=== PATIENT | female | born 2005 | race African-American/Black ===

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

== ENCOUNTER 2024-01-09 16:31 | Emergency (ER) | payer OTHER | END 2024-01-09 16:55 | disposition left against medical advice (07) | LOC: ER 16:33 | DX: R10.9 Unspecified abdominal pain (principal); Z53.21 Procedure and treatment not carried out due to patient leaving prior to being seen by health care provider ==

== ENCOUNTER 2024-03-04 19:53 | Emergency (ER) | payer OTHER ==
[~2024-03-04] VITALS: Ht 167.6 cm; Wt 90.7 kg
[2024-03-04] MEDS ORDERED: methylPREDNISolone SOD SUCC 125 MG/2 ML VIAL ONE (20:09)
[2024-03-04] MEDS ORDERED: diphenhydrAMINE 50 MG/1 ML VIAL ONE (20:09)
[2024-03-04] MEDS ORDERED: FAMOTIDINE. 20 MG/2 ML VIAL IV ONE (20:10)
[2024-03-04] MEDS: FAMOTIDINE. 20 MG/2 ML VIAL IV ONE (20:21)
[2024-03-04] MEDS: methylPREDNISolone SOD SUCC 125 MG/2 ML VIAL IV ONE (20:21)
[2024-03-04] MEDS: diphenhydrAMINE 50 MG/1 ML VIAL IV ONE (20:21)
[2024-03-04 20:35] LABS: BASOPHILS # (AUTO) 0.1 K/UL (0.0-0.2); BASOPHILS % (AUTO) 0.9 % (0.0-2.0); EOSINOPHILS # (AUTO) 0.3 K/uL (0.0-0.7); HEMATOCRIT 35.7 % (31.2-41.9); HEMOGLOBIN 11.4 g/dL (10.9-14.3); LYMPHOCYTES # (AUTO) 3.2 K/uL (0.8-4.8); LYMPHOCYTES % (AUTO) 38.2 % (20.5-74.5); MEAN CORPUSCULAR HEMOGLOBIN 25.6 uug (24.7-32.8); MEAN CORPUSCULAR HGB CONC 32 g/dL (32.3-35.6); MEAN CORPUSCULAR VOLUME 79.8 fL (75.5-95.3); MONOCYTES # (AUTO) 0.6 K/uL (0.1-1.30); MONOCYTES % (AUTO) 7.5 % (0-11); NEUTROPHILS # (AUTO) 4.1 K/uL (1.8-8.9); NEUTROPHILS % (AUTO) 49.4 % (31.5-64.5); PLATELET COUNT (AUTO) 231 K/uL (179-408); RED BLOOD CELL COUNT(AUTO) 4.47 MIL/uL (3.63-4.92); RED CELL DISTRIBUTION WIDTH 17.3 % (12.3-17.7); WHITE BLOOD COUNT (AUTO) 8.4 K/uL (3.8-11.8)
[2024-03-04 20:40] LABS: DIFFERENTIAL COMMENT 1
[2024-03-04 20:59] LABS: CALCIUM 8.6 mg/dL (8.5-10.1); CARBON DIOXIDE 28 mmol/L (21-32); CHLORIDE 105 mmol/L (98-107); CREATININE 0.8 mg/dL (0.6-1.3); GLUCOSE 93 mg/dL (74-106); SODIUM SERUM 143 mmol/L (136-145); UREA NITROGEN, BLOOD 3 mg/dL (7-18)
[2024-03-04 21:14] LABS: ALANINE AMINOTRANSFERASE 8 U/L (14-59); ALBUMIN 3.2 g/dL (3.4-5.0); ALKALINE PHOSPHATASE 86 U/L (50-136); ASPARTATE AMINOTRANSFERASE < 5 U/L (15-37); BILIRUBIN,TOTAL 0.3 mg/dL (0.2-1.0); TOTAL PROTEIN, SERUM 7.8 g/dL (6.4-8.2)
[2024-03-04] MEDS ORDERED: FAMO-132 PO (21:29)
[2024-03-04] MEDS ORDERED: EPIN0.3P3 IM (21:29)
[2024-03-04] MEDS ORDERED: DIPH25TA62 PO (21:29)
[2024-03-04] MEDS ORDERED: POTASSIUM CHLORIDE 20 MEQ TAB.PRT.SR ONE (21:33)
[2024-03-04] MEDS: POTASSIUM CHLORIDE 20 MEQ TAB.PRT.SR PO ONE (21:38)
[2024-03-04] MEDS ORDERED: PRED20TA PO (21:54)
[2024-03-04 22:44] VITALS: BP 117/93; O2SAT 97
== END 2024-03-04 22:17 | disposition home or self-care (01) ==
LOC: ER 19:58
DX: T78.3XXA Angioneurotic edema, initial encounter (principal); Z79.899 Other long term (current) drug therapy; Z88.8 Allergy status to other drugs, medicaments and biological substances; Y92.89 Other specified places as the place of occurrence of the external cause
CPT/HCPCS: 99284; 96374; 96375; 80053; 85025; 36415; 83605; J1200; J3490; J2919; A4606; A4663

== ENCOUNTER 2024-04-09 15:53 | Emergency (ER) | payer OTHER ==
[~2024-04-09] VITALS: Ht 170.2 cm; Wt 68.0 kg
[~2024-04-09 15:53] MED LIST changes: +DIPH25TA62 PO; +PRED20TA PO
[2024-04-09 16:31] LABS: *BILIRUBIN,URIN 1+ (NEGATIVE); *BLOOD, URINE NEGATIVE (NEGATIVE); *CLARITY,URINE CLEAR (CLEAR); *COLOR,URINE YELLOW (YELLOW); *KETONES,URINE 3+ (NEGATIVE); *PROTEIN,URINE TRACE (NEGATIVE); *UROBILINOGEN,URINE 0.2 E.U./dl (NORMAL); LEUKOCYTE ESTERASE ,URINE 1+ (NEGATIVE); NITRITE, URINE NEGATIVE (NEGATIVE); PH,URINE 5.5 (5.0-8.0); UGLUCOSE NEGATIVE (NEGATIVE)
[2024-04-09 16:32] LABS: *URINE HCG, QUAL NEGATIVE (NEGATIVE); CALCIUM 9.4 mg/dL (8.5-10.1); CARBON DIOXIDE 25 mmol/L (21-32); CHLORIDE 103 mmol/L (98-107); CREATININE 0.7 mg/dL (0.6-1.3); GLUCOSE 84 mg/dL (74-106); POTASSIUM 3.3 mmol/L (3.5-5.1); SODIUM SERUM 140 mmol/L (136-145); UREA NITROGEN, BLOOD 5 mg/dL (7-18)
[2024-04-09 16:37] LABS: ALANINE AMINOTRANSFERASE 10 U/L (14-59); ALBUMIN 3.4 g/dL (3.4-5.0); ALKALINE PHOSPHATASE 82 U/L (50-136); ASPARTATE AMINOTRANSFERASE < 5 U/L (15-37); BILIRUBIN,DIRECT 0.1 mg/dL (0.0-0.2); BILIRUBIN,TOTAL 0.5 mg/dL (0.2-1.0); LIPASE 20 U/L (16-77)
[2024-04-09 17:23] LABS: BACTERIA,URINE FEW /HPF (NONE SEEN); MUCUS,URINE FEW /LPF (0-FEW); SQUAMOUS EPITHELIAL CELL,UR MODERATE /HPF (NONE SEEN)
[2024-04-09] MEDS ORDERED: PHEN-704 PO (18:11)
[2024-04-09] MEDS ORDERED: NITR100C6 PO (18:11)
[2024-04-09 18:16] VITALS: BP 121/71; O2SAT 98
== END 2024-04-09 18:16 | disposition home or self-care (01) ==
LOC: ER 15:55
DX: N39.0 Urinary tract infection, site not specified (principal); R10.2 Pelvic and perineal pain; Z88.8 Allergy status to other drugs, medicaments and biological substances; Z91.018 Allergy to other foods; Z79.2 Long term (current) use of antibiotics; Z79.899 Other long term (current) drug therapy
CPT/HCPCS: 36415; 76856; 83690; 84703; A4606; A4663

== ENCOUNTER 2025-03-10 12:37 | Emergency (ER) | payer OTHER ==
[~2025-03-10] VITALS: Ht 167.6 cm; Wt 74.8 kg
[~2025-03-10 12:37] MED LIST changes: +NITR100C6 PO; +PHEN-704 PO
[2025-03-10 13:01] LABS: *BILIRUBIN,URIN NEGATIVE (NEGATIVE); *BLOOD, URINE NEGATIVE (NEGATIVE); *CLARITY,URINE CLEAR (CLEAR); *COLOR,URINE YELLOW (YELLOW); *KETONES,URINE NEGATIVE (NEGATIVE); *PROTEIN,URINE NEGATIVE (NEGATIVE); *UROBILINOGEN,URINE 0.2 E.U./dl (NORMAL); LEUKOCYTE ESTERASE ,URINE NEGATIVE (NEGATIVE); NITRITE, URINE NEGATIVE (NEGATIVE); UGLUCOSE NEGATIVE (NEGATIVE)
[2025-03-10 13:04] LABS: *URINE HCG, QUAL POSITIVE (NEGATIVE)
[2025-03-10 13:52] LABS: BASOPHILS % (AUTO) 0.6 % (0.0-2.0); EOSINOPHILS # (AUTO) 0.1 K/uL (0.0-0.7); EOSINOPHILS % (AUTO) 1.3 % (0.0-7.0); HEMOGLOBIN 12.4 g/dL (10.9-14.3); LYMPHOCYTES # (AUTO) 1.6 K/uL (0.8-4.8); LYMPHOCYTES % (AUTO) 29.8 % (20.5-51.5); MEAN CORPUSCULAR HEMOGLOBIN 27.3 uug (24.7-32.8); MEAN CORPUSCULAR HGB CONC 33 g/dL (32.3-35.6); MEAN CORPUSCULAR VOLUME 83.9 fL (75.5-95.3); MONOCYTES # (AUTO) 0.3 K/uL (0.1-1.30); MONOCYTES % (AUTO) 5.7 % (0.0-11.0); NEUTROPHILS # (AUTO) 3.3 K/uL (1.8-8.9); NEUTROPHILS % (AUTO) 62.6 % (38.5-71.5); PLATELET COUNT (AUTO) 181 K/uL (179-408); RED BLOOD CELL COUNT(AUTO) 4.53 MIL/uL (3.63-4.92); RED CELL DISTRIBUTION WIDTH 15.1 % (12.3-17.7); WHITE BLOOD COUNT (AUTO) 5.3 K/uL (3.8-11.8)
[2025-03-10 13:58] LABS: DIFFERENTIAL COMMENT 1
[2025-03-10 14:02] LABS: CALCIUM 8.6 mg/dL (8.5-10.1); CARBON DIOXIDE 26 mmol/L (21-32); CHLORIDE 102 mmol/L (98-107); CREATININE 0.5 mg/dL (0.6-1.3); GLUCOSE 83 mg/dL (74-106); POTASSIUM 3.5 mmol/L (3.5-5.1); SODIUM SERUM 138 mmol/L (136-145); UREA NITROGEN, BLOOD 3 mg/dL (7-18)
[2025-03-10 14:08] LABS: ALANINE AMINOTRANSFERASE 15 U/L (14-59); ALBUMIN 3.3 g/dL (3.4-5.0); ALKALINE PHOSPHATASE 57 U/L (50-136); ASPARTATE AMINOTRANSFERASE 9 U/L (15-37); BILIRUBIN,DIRECT < 0.1 mg/dL (0.0-0.2); BILIRUBIN,TOTAL 0.2 mg/dL (0.2-1.0); TOTAL PROTEIN, SERUM 7.5 g/dL (6.4-8.2)
[2025-03-10 14:32] LABS: PREGNANCY TEST SERUM QUAN 15923 miul/L (0-6)
[2025-03-10 15:11] VITALS: BP 110/60; TEMP 97.5; O2SAT 99
== END 2025-03-10 15:00 | disposition home or self-care (01) ==
LOC: ER 12:42
DX: O26.891 Other specified pregnancy related conditions, first trimester (principal); O99.321 Drug use complicating pregnancy, first trimester; R10.2 Pelvic and perineal pain; R11.0 Nausea; E46 Unspecified protein-calorie malnutrition; M54.9 Dorsalgia, unspecified; R10.30 Lower abdominal pain, unspecified; Z79.52 Long term (current) use of systemic steroids; Z88.6 Allergy status to analgesic agent; Z88.7 Allergy status to serum and vaccine; Z3A.01 Less than 8 weeks gestation of pregnancy
CPT/HCPCS: 36415; 76856; 84703; 85025; A4606; A4663

== ENCOUNTER 2025-07-01 15:42 | Emergency (ER) | payer OTHER ==
[~2025-07-01] VITALS: Ht 167.6 cm; Wt 81.6 kg
[2025-07-01 15:52] VITALS: BP 120/72
[2025-07-01 16:39] LABS: PLATELET COUNT (AUTO) 182 K/uL (179-408); RED BLOOD CELL COUNT(AUTO) 4.42 MIL/uL (3.63-4.92); RED CELL DISTRIBUTION WIDTH 13.7 % (12.3-17.7); WHITE BLOOD COUNT (AUTO) 5.2 K/uL (3.8-11.8)
[2025-07-01 16:54] LABS: CREATININE 0.6 mg/dL (0.6-1.3); SODIUM SERUM 137 mmol/L (136-145); UREA NITROGEN, BLOOD 4 mg/dL (7-18)
[2025-07-01 17:00] LABS: ASPARTATE AMINOTRANSFERASE 9 U/L (15-37); TOTAL PROTEIN, SERUM 8.2 g/dL (6.4-8.2)
[2025-07-01 17:24] LABS: PREGNANCY TEST SERUM QUAN 17368 miul/L (0-6)
[2025-07-01] MEDS ORDERED: POTASSIUM BICARBONATE/CIT AC 25 MEQ TABLET.EFF ONE (17:28)
[2025-07-01] MEDS ORDERED: ONDANSETRON ODT 4 MG TAB.RAPDIS ONE (17:28)
[2025-07-01] MEDS: ONDANSETRON ODT 4 MG TAB.RAPDIS SL ONE (17:34)
[2025-07-01] MEDS: POTASSIUM BICARBONATE/CIT AC 25 MEQ TABLET.EFF PO ONE (17:34)
[2025-07-01 17:41] LABS: *BILIRUBIN,URIN NEGATIVE (NEGATIVE); *CLARITY,URINE CLEAR (CLEAR); *COLOR,URINE LIGHT YELLOW (YELLOW); *KETONES,URINE 2+ (NEGATIVE); *PROTEIN,URINE NEGATIVE (NEGATIVE); *UROBILINOGEN,URINE 0.2 E.U./dl (NORMAL); LEUKOCYTE ESTERASE ,URINE NEGATIVE (NEGATIVE); NITRITE, URINE NEGATIVE (NEGATIVE); UGLUCOSE NEGATIVE (NEGATIVE)
[2025-07-01 17:46] LABS: *BLOOD, URINE TRACE (NEGATIVE)
[2025-07-01] MEDS ORDERED: POTA25TA7 PO (18:02)
[2025-07-01 18:05] LABS: SQUAMOUS EPITHELIAL CELL,UR FEW /HPF (NONE SEEN)
[2025-07-01 18:32] VITALS: BP 120/72; O2SAT 99
== END 2025-07-01 18:33 | disposition home or self-care (01) ==
LOC: ER 15:42
DX: O20.0 Threatened abortion (principal); O99.891 Other specified diseases and conditions complicating pregnancy; O99.321 Drug use complicating pregnancy, first trimester; E87.6 Hypokalemia; Z79.52 Long term (current) use of systemic steroids; Z88.6 Allergy status to analgesic agent; Z88.7 Allergy status to serum and vaccine; Z91.018 Allergy to other foods; Z3A.08 8 weeks gestation of pregnancy
CPT/HCPCS: 36415; 76856; 85025; 86850; 86900; 86901; A4606; A4663; Q0162

== ENCOUNTER 2025-07-10 07:35 | Emergency (ER) | payer OTHER ==
[~2025-07-10] VITALS: Ht 167.6 cm; Wt 74.8 kg
[~2025-07-10 07:35] MED LIST changes: +POTA25TA7 PO
[2025-07-10 07:42] VITALS: BP 121/80
[2025-07-10] MEDS ORDERED: METOCLOPRAMIDE HCL 10 MG/2 ML VIAL ONE (08:25)
[2025-07-10] MEDS ORDERED: diphenhydrAMINE 50 MG/1 ML VIAL ONE (08:25)
[2025-07-10] MEDS ORDERED: FAMOTIDINE. 20 MG/2 ML VIAL IV ONE (08:26)
[2025-07-10 08:32] LABS: PLATELET COUNT (AUTO) 185 K/uL (179-408); RED BLOOD CELL COUNT(AUTO) 4.33 MIL/uL (3.63-4.92); RED CELL DISTRIBUTION WIDTH 13.8 % (12.3-17.7); WHITE BLOOD COUNT (AUTO) 3.9 K/uL (3.8-11.8)
[2025-07-10] MEDS: diphenhydrAMINE 50 MG/1 ML VIAL IV ONE (08:37)
[2025-07-10] MEDS: METOCLOPRAMIDE HCL 10 MG/2 ML VIAL IV ONE (08:37)
[2025-07-10] MEDS: IV NORMAL SALINE 1000 ML BAG IV ONE (08:37)
[2025-07-10] MEDS: FAMOTIDINE. 20 MG/2 ML VIAL IV ONE (08:37)
[2025-07-10 08:38] LABS: CREATININE 0.6 mg/dL (0.6-1.3); SODIUM SERUM 138 mmol/L (136-145); UREA NITROGEN, BLOOD 3 mg/dL (7-18)
[2025-07-10 08:39] LABS: *BILIRUBIN,URIN 1+ (NEGATIVE); *BLOOD, URINE NEGATIVE (NEGATIVE); *COLOR,URINE YELLOW (YELLOW); *KETONES,URINE 3+ (NEGATIVE); *PROTEIN,URINE 1+ (NEGATIVE); *UROBILINOGEN,URINE 1.0 E.U./dl (NORMAL); LEUKOCYTE ESTERASE ,URINE 2+ (NEGATIVE); NITRITE, URINE NEGATIVE (NEGATIVE); UGLUCOSE NEGATIVE (NEGATIVE)
[2025-07-10 08:43] LABS: ASPARTATE AMINOTRANSFERASE 12 U/L (15-37); TOTAL PROTEIN, SERUM 7.4 g/dL (6.4-8.2)
[2025-07-10 08:44] LABS: *CLARITY,URINE HAZY (CLEAR)
[2025-07-10 08:45] LABS: URINE AMORPHOUS URATE MODERATE /HPF
[2025-07-10] MEDS ORDERED: CEFTRIAXONE /D5W 50ML IVPB **ER PYXIS IV ONE (09:31)
[2025-07-10] MEDS ORDERED: POTASSIUM CHLORIDE 20 MEQ TAB.PRT.SR ONE (09:31)
[2025-07-10] MEDS: POTASSIUM CHLORIDE 20 MEQ TAB.PRT.SR PO ONE (09:37)
[2025-07-10] MEDS ORDERED: AMOX-430 PO (10:04)
[2025-07-10] MEDS ORDERED: METO-295 PO (10:04)
[2025-07-10 10:14] VITALS: BP 119/65; TEMP 98.2; O2SAT 97
== END 2025-07-10 10:19 | disposition home or self-care (01) ==
LOC: ER 07:35
DX: O23.42 Unspecified infection of urinary tract in pregnancy, second trimester (principal); O21.0 Mild hyperemesis gravidarum; Z79.52 Long term (current) use of systemic steroids; Z88.6 Allergy status to analgesic agent; Z88.7 Allergy status to serum and vaccine; Z91.018 Allergy to other foods; Z3A.15 15 weeks gestation of pregnancy
CPT/HCPCS: 36415; 70030-TC; 83690; 85025; 87086; A4606; A4663; J0696; J1200; J1308; J2765; J7040

== ENCOUNTER 2025-08-11 08:54 | Emergency (ER) | payer OTHER ==
[~2025-08-11] VITALS: Ht 154.9 cm; Wt 72.6 kg
[~2025-08-11 08:54] MED LIST changes: +AMOX-430 PO; +METO-295 PO
[2025-08-11 09:22] LABS: PLATELET COUNT (AUTO) 186 K/uL (179-408); RED BLOOD CELL COUNT(AUTO) 4.46 MIL/uL (3.63-4.92); RED CELL DISTRIBUTION WIDTH 14.1 % (12.3-17.7); WHITE BLOOD COUNT (AUTO) 4.3 K/uL (3.8-11.8)
[2025-08-11 09:36] LABS: CREATININE 0.5 mg/dL (0.6-1.3); SODIUM SERUM 137 mmol/L (136-145); UREA NITROGEN, BLOOD 2 mg/dL (7-18)
[2025-08-11 09:42] LABS: ASPARTATE AMINOTRANSFERASE 8 U/L (15-37); TOTAL PROTEIN, SERUM 7.9 g/dL (6.4-8.2)
[2025-08-11 10:31] LABS: PREGNANCY TEST SERUM QUAN 63470 miul/L (0-6)
[2025-08-11 10:46] VITALS: BP 118/77
[2025-08-11 10:56] LABS: *BILIRUBIN,URIN NEGATIVE (NEGATIVE); *BLOOD, URINE NEGATIVE (NEGATIVE); *CLARITY,URINE CLEAR (CLEAR); *COLOR,URINE YELLOW (YELLOW); *KETONES,URINE NEGATIVE (NEGATIVE); *PROTEIN,URINE NEGATIVE (NEGATIVE); *UROBILINOGEN,URINE 0.2 E.U./dl (NORMAL); LEUKOCYTE ESTERASE ,URINE 1+ (NEGATIVE); NITRITE, URINE NEGATIVE (NEGATIVE); UGLUCOSE NEGATIVE (NEGATIVE)
[2025-08-11] MEDS ORDERED: TRAMADOL HCL 50 MG TABLET ONE (10:59)
[2025-08-11] MEDS: TRAMADOL HCL 50 MG TABLET PO ONE (11:04)
[2025-08-11] MEDS ORDERED: TRAM50TA2 PO (11:04)
[2025-08-11] MEDS ORDERED: AMOXICILLIN-CLAVUL 875-125MG TABLET ONE (11:05)
[2025-08-11] MEDS: AMOXICILLIN-CLAVUL 875-125MG TABLET PO ONE (11:06)
[2025-08-11 11:09] LABS: SQUAMOUS EPITHELIAL CELL,UR MODERATE /HPF (NONE SEEN)
[2025-08-11 11:38] VITALS: BP 118/77; TEMP 98.1; O2SAT 99
== END 2025-08-11 11:38 | disposition home or self-care (01) ==
LOC: ER 08:54
DX: O23.41 Unspecified infection of urinary tract in pregnancy, first trimester (principal); O26.892 Other specified pregnancy related conditions, second trimester; O21.9 Vomiting of pregnancy, unspecified; A64 Unspecified sexually transmitted disease; Z79.52 Long term (current) use of systemic steroids; Z88.6 Allergy status to analgesic agent; Z88.7 Allergy status to serum and vaccine; Z79.899 Other long term (current) drug therapy; Z86.2 Personal history of diseases of the blood and blood-forming organs and certain disorders involving the immune mechanism; Z91.018 Allergy to other foods; Z3A.11 11 weeks gestation of pregnancy
CPT/HCPCS: 36415; 76856; 85025; 85730; 87077; 87086; A4606; A4663

== ENCOUNTER 2025-08-21 02:19 | Emergency (ER) | payer OTHER ==
[~2025-08-21] VITALS: Ht 170.2 cm; Wt 72.6 kg
[~2025-08-21 02:19] MED LIST changes: +TRAM50TA2 PO
[2025-08-21 02:22] VITALS: BP 121/66
[2025-08-21 02:40] LABS: PLATELET COUNT (AUTO) 173 K/uL (179-408); RED BLOOD CELL COUNT(AUTO) 4.15 MIL/uL (3.63-4.92); RED CELL DISTRIBUTION WIDTH 14.0 % (12.3-17.7); WHITE BLOOD COUNT (AUTO) 5.4 K/uL (3.8-11.8)
[2025-08-21 02:40] LABS: *BILIRUBIN,URIN NEGATIVE (NEGATIVE); *BLOOD, URINE NEGATIVE (NEGATIVE); *CLARITY,URINE CLEAR (CLEAR); *COLOR,URINE YELLOW (YELLOW); *KETONES,URINE TRACE (NEGATIVE); *PROTEIN,URINE NEGATIVE (NEGATIVE); *UROBILINOGEN,URINE 0.2 E.U./dl (NORMAL); LEUKOCYTE ESTERASE ,URINE NEGATIVE (NEGATIVE); NITRITE, URINE NEGATIVE (NEGATIVE); UGLUCOSE NEGATIVE (NEGATIVE)
[2025-08-21 02:48] LABS: CREATININE 0.4 mg/dL (0.6-1.3); SODIUM SERUM 138 mmol/L (136-145); UREA NITROGEN, BLOOD 4 mg/dL (7-18)
[2025-08-21 02:54] LABS: ASPARTATE AMINOTRANSFERASE 11 U/L (15-37); TOTAL PROTEIN, SERUM 7.5 g/dL (6.4-8.2)
[2025-08-21 03:04] LABS: SQUAMOUS EPITHELIAL CELL,UR MODERATE /HPF (NONE SEEN)
[2025-08-21] MEDS ORDERED: OXYCODONE HCL 5 MG TABLET ONE (03:11)
[2025-08-21] MEDS: OXYCODONE HCL 5 MG TABLET PO ONE (03:14)
[2025-08-21 03:23] LABS: PREGNANCY TEST SERUM QUAN 59189 miul/L (0-6)
[2025-08-21] MEDS ORDERED: OXYC5TAB3 PO (05:18)
[2025-08-21 05:25] VITALS: BP 121/66; O2SAT 100
== END 2025-08-21 05:26 | disposition home or self-care (01) ==
LOC: ER 02:21
DX: O26.892 Other specified pregnancy related conditions, second trimester (principal); R10.9 Unspecified abdominal pain; M25.552 Pain in left hip; M25.551 Pain in right hip; Z79.52 Long term (current) use of systemic steroids; Z88.6 Allergy status to analgesic agent; Z88.7 Allergy status to serum and vaccine; Z91.018 Allergy to other foods; Z3A.13 13 weeks gestation of pregnancy; Z79.899 Other long term (current) drug therapy
CPT/HCPCS: 36415; 70030-TC; 83690; 85025; A4606; A4663